=== PATIENT | male | born 1995 | race Caucasian/White ===

== ENCOUNTER 2019-11-06 11:36 | Emergency (ER) | payer BC ==
[2019-11-06 19:40] LABS: SARS-CoV-2 MS2 Positive; SARS-CoV-2 N Gene Negative; SARS-CoV-2 S Gene Negative; SARS-CoV-2 orf1ab Negative
== END 2019-11-06 12:19 | disposition home or self-care (01) ==
LOC: ERS 11:36
DX: Z20.828 Contact with and (suspected) exposure to other viral communicable diseases (principal); F17.210 Nicotine dependence, cigarettes, uncomplicated
CPT/HCPCS: 87635; 99283; U0003

== ENCOUNTER 2019-12-07 05:51 | Outpatient (CLI) | payer BC, OTHER ==
[2019-12-08 13:47] LABS: SARS-CoV-2 MS2 Positive; SARS-CoV-2 N Gene Negative; SARS-CoV-2 S Gene Negative; SARS-CoV-2 orf1ab Negative
== END 2019-12-07 05:52 | disposition home or self-care (01) ==
LOC: LABBT 05:51
PROVIDERS: ATTEND Specialist
DX: Z01.812 Encounter for preprocedural laboratory examination (principal); Z11.59 Encounter for screening for other viral diseases; A63.0 Anogenital (venereal) warts
CPT/HCPCS: 87635; U0003

== ENCOUNTER 2019-12-11 07:11 | Day surgery (SDC) | payer BC ==
[2019-12-09 16:15] VITALS: BMI 25.0
--- NOTE | 2019-12-11 07:22 | HP ---
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 Mendez recently, and has several condyloma perianal. Plan is to excise these and cauterize them as an outpatient under general anesthesia. He has had some cryotherapy of others in his office. He understands risks and benefits, consents. ALLERGIES: NONE. HABITS: Tobacco, none. Alcohol, rarely. MEDICATIONS: None routinely. PAST SURGICAL HISTORY: Appendectomy. PAST MEDICAL HISTORY: Noncontributory. LABORATORY DATA: On 09/07/2019, his CBC was normal. Comprehensive metabolic profile was normal. Serology negative for syphilis, negative for chlamydia, hepatitis negative, HIV negative. REVIEW OF SYSTEMS: Noncontributory. FAMILY HISTORY: Noncontributory. PHYSICAL EXAMINATION: VITAL SIGNS: Weight 180 pounds, height 5 feet 11 inches, blood pressure 136/75, heart rate 69, and temperature 98.8 degrees. HEAD, EARS, EYES, NOSE, AND THROAT: Unremarkable. LUNGS: Clear to auscultation. CARDIAC: Regular rate and rhythm without murmur or gallop. ABDOMEN: Soft and nontender. EXTREMITIES: Unremarkable. LYMPHATICS: No lymphadenopathy in the groin. PERIANAL: Multiple condyloma, 0.5 to 2 cm, pedunculated, perianal, too numerous to excise in the office. PLAN: Perianal condyloma. We would recommend excision and cauterization as an outpatient under general anesthesia in the hospital. He understands risks and benefits and consents. Job ID: [id number]
[2019-12-11] MEDS ORDERED: Acetaminophen 500 MG TAB ONE (08:00)
[2019-12-11] MEDS ORDERED: Ketorolac Tromethamine 30 MG/ML VIAL ONE (08:00)
[2019-12-11] MEDS ORDERED: Fentanyl 250 MCG/5 ML VIAL ONE (09:17)
[2019-12-11] MEDS ORDERED: Bupivacaine PF 0.5% 30 ML VIAL ONE (10:00)
[2019-12-11] MEDS ORDERED: Lidocaine 1% w/Epinephrine 1:100K 20 ML VIAL ONE (10:00)
[2019-12-11] MEDS ORDERED: Bacitracin Zinc Ointment 30 gm TUBE ONE (10:12)
[2019-12-11] MEDS ORDERED: Glycopyrrolate 0.2 MG/ML 5 ML SYRINGE ONE (11:01)
[2019-12-11] MEDS ORDERED: Lidocaine 1% PF 5 ML VIAL ONE (11:01)
[2019-12-11] MEDS ORDERED: Rocuronium Bromide 10 MG/ML (10ML VIAL) ONE (11:01)
[2019-12-11] MEDS ORDERED: PROPOFOL 200 MG/20 ML VIAL ONE (11:01)
[2019-12-11] MEDS ORDERED: Ondansetron PF 4 MG/2 ML Vial ONE (11:01)
[2019-12-11] MEDS ORDERED: Dexamethasone 20 MG/5 ML VIAL ONE (11:01)
--- NOTE | 2019-12-11 11:10 | OP ---
DATE OF PROCEDURE: 12/11/2019 PREOPERATIVE DIAGNOSES: 1. Perianal condyloma. 2. Intra-anal condyloma. POSTOPERATIVE DIAGNOSES: 1. Perianal condyloma. 2. Intra-anal condyloma. PROCEDURE PERFORMED: Excision and cauterization of multiple perianal condyloma and intra-anal condyloma. Cautery used for hemostasis and ablation. ANESTHESIA: General, local with 0.5% Marcaine 30 mL, mixed with 1% Xylocaine with epinephrine 20 mL. DESCRIPTION OF PROCEDURE: The patient was taken to the operating room where under general anesthesia in the dorsal lithotomy position, perianal area was prepared with Betadine and draped in routine fashion. Perianal multiple small condyloma excised, cauterized the base. Intra-anal inspection revealed a few intra-anal lesions on both sides and these were excised and cauterized. Subsequently, the smaller lesions were cauterized and ablated. There was a skin lesion that was questionable and this was excised over the medial left thigh and base cauterized. Specimen submitted. The patient tolerated the procedure well. Good hemostasis noted. Local anesthetic was infiltrated in the skin and subcutaneous tissue about the operative site. Antibiotic ointment and Xeroform placed perianal. Band-Aid placed across the medial left thigh. Job ID: [id number]
[2019-12-11] MEDS ORDERED: Fentanyl 100 MCG/2 ML VIAL ONE (11:19)
[2019-12-11] MEDS ORDERED: traMADol HCl 50 MG TAB ONE (12:51)
== END 2019-12-11 13:12 | disposition home or self-care (01) ==
LOC: SDC 07:11
PROVIDERS: ATTEND Specialist
PROC: 0H59XZZ Destruction of Perineum Skin, External Approach (ICD-10-PCS; principal; 2019-12-11)
DX: A63.0 Anogenital (venereal) warts (principal)
CPT/HCPCS: 88305; J0694; J1100; J1885; J2001; J2405; J2704; J3010; S0020